=== PATIENT | male | born 1990 | race American Indian/Alaskan Native ===

== ENCOUNTER → 2022-05-11 | Outpatient (CLI) | payer OTHER | LOC: M CARPUL 10:09 | PROVIDERS: ATTEND Physician Assistant | DX: R06.02 Shortness of breath (principal) ==

== ENCOUNTER → 2022-05-18 | Outpatient (CLI) | payer OTHER ==
[~2022-05-18] MED LIST: METHACHOLINE KIT (J7674) INH ONE
== END ==
LOC: M CARPUL 13:57
DX: R06.00 Dyspnea, unspecified (principal)
CPT/HCPCS: 94070; J7674

== ENCOUNTER → 2022-11-25 | Outpatient (REF) | payer OTHER | LOC: M LAB REF 11:20 | PROVIDERS: ATTEND Internal Medicine Gastroenterology | DX: R19.7 Diarrhea, unspecified (principal) ==

== ENCOUNTER 2022-12-29 09:11 | Day surgery (SDC) | payer OTHER ==
[~2022-12-29] VITALS: Ht 177.8 cm; Wt 102.7 kg
[~2022-12-29 09:11] MED LIST changes: +BUPR15TASR PO; +BUSP15TA47 PO; +HYDR-3363 PO; -METHACHOLINE KIT (J7674) INH ONE; +NS 1,000 ML IV ONE; +TRAZ-252 PO
[2022-12-29] MEDS ORDERED: propofoL 200 MG/20 ML VIAL As Ordered ONE ×2 (11:35→11:39)
[2022-12-29 12:20] VITALS: BP 135/82
== END 2022-12-29 12:33 | disposition home or self-care (01) ==
LOC: M OPP 09:11
PROVIDERS: ATTEND Internal Medicine Gastroenterology
DX: K51.419 Inflammatory polyps of colon with unspecified complications (principal); K64.4 Residual hemorrhoidal skin tags; K64.8 Other hemorrhoids; K92.1 Melena; Z88.1 Allergy status to other antibiotic agents